=== PATIENT | male | born 1980 | race Caucasian/White ===

== ENCOUNTER → 2017-09-24 | Outpatient (CLI) | payer BC ==
[~2017-09-24] MED LIST: ALB6.7R INH; AMOX-362 PO; DUL100/5PT INH; EDOX60TA PO; HYOS0.1225 PO; LINA145C PO; LOR5/325 PO; MULT1TAB64 PO; PANT40TA65 PO; RIV10 PO; RIVA15TA PO; [UNRECOGNIZED DRUG - CODE] PO
== END ==
LOC: LAB 10:49
PROVIDERS: ATTEND Surgery
DX: L72.0 Epidermal cyst (principal); R22.9 Localized swelling, mass and lump, unspecified
CPT/HCPCS: 88305

== ENCOUNTER → 2017-12-22 | Outpatient (REF) | LOC: AUD 09:05 | PROVIDERS: ATTEND Internal Medicine | DX: Z01.10 Encounter for examination of ears and hearing without abnormal findings (principal) | CPT/HCPCS: 92552 ==

== ENCOUNTER → 2019-01-11 | Outpatient (REF) | LOC: AUD 11:10 | PROVIDERS: ATTEND Internal Medicine | DX: Z01.12 Encounter for hearing conservation and treatment (principal) | CPT/HCPCS: 92552 ==

== ENCOUNTER → 2019-02-08 | Outpatient (CLI) | payer BC ==
--- NOTE | 2019-02-10 11:52 | RT HOLTER TEST ---
FACILITY: [facility] [place] PATIENT NAME: AURELIA LEPE : [id number] MR: [id number] V: [id number] EXAM DATE: ORDERING PHYSICIAN: DEBBIE DIAZ TECHNOLOGIST: MIRIAM Hook-up date: 2019-02-08 13:51:00 Duration: 40:47:00 Test Indications: ABNORMAL EKG Medications: N/A 107204 QRS complexes 1985 Ventricular ectopics which represent <1 % of total QRS comp. 4011 Supraventricular ectopics which represent 1 % of total QRS comp. * Paced QRS complexes which represent % of total QRS comp. VENTRICULAR ECTOPY 1985 Isolated 169 Bigeminal Cycles 0 Couplets 0 Runs 0 Beats in Runs * Beats LONGEST at * BPM at :: -- * Beats FASTEST at * BPM at :: -- SUPRAVENTRICULAR ECTOPY 4011 Isolated 0 Couplets 0 Runs 0 Beats in Runs * Beats LONGEST at * BPM at :: -- * Beats FASTEST at * BPM at :: -- HEART RATES 46 MIN at 05:22:23 2019-02-09 83 AVG 158 MAX at 16:01:50 2019-02-08 LONGEST RR 1.744 secs at 05:03:51 2019-02-09 S-T LEVELS Channel 1 -12.800 mm MIN at 13:51:00 2019-02-08 -12.800 mm MAX at 13:51:00 2019-02-08 Channel 2 -12.800 mm MIN at 13:51:00 2019-02-08 -12.800 mm MAX at 13:51:00 2019-02-08 Channel 3 -12.800 mm MIN at 13:51:00 2019-02-08 -12.800 mm MAX at 13:51:00 2019-02-08 Frequent supraventricular ectopy with possible competing ectopic atrial focus intermittently througho ut recording. It appears there may be some aberrantly conducted premature atrial complexes as well. Occasional ventricular ectopy with some bigeminy. No couplets or runs. No pauses of more than two (2.0) seconds were recorded. Confirmed by RANDALL HIDALGO ([id number] on 02/10/2019 11:52:17 AM Referred By: Overread By: RANDALL HIDALGO
== END ==
LOC: RESP 13:33
PROVIDERS: ATTEND Family Medicine
DX: R94.31 Abnormal electrocardiogram [ECG] [EKG] (principal)
CPT/HCPCS: 93225; 93226